=== PATIENT | female | born 1980 | race Caucasian/White ===

== ENCOUNTER 2023-08-19 08:35 | Day surgery (SDC) | payer OTHER ==
[~2023-08-19] VITALS: Ht 167.6 cm; Wt 174.6 kg
[~2023-08-19 08:35] MED LIST: ALBU8.5H INH; ALLO100T PO; CALC600T60 PO; CALCTAB93; CYAN1000VL SQ; D 50CAP2 PO; DRIS50003 PO; ERGO500029 PO; FLUTISP; FOLI1TAB11 PO; LEVO30TA PO; OMEP40CA4 PO; PANT40TA29 PO; PROP40TA62 PO; PROP60CA PO; SUMA25TA3 PO; VENTAER; [UNRECOGNIZED DRUG - CODE] PO; [UNRECOGNIZED DRUG - CODE] PO
[2023-08-19] MEDS ORDERED: fentaNYL 100 MCG/2 ML INJECTION As Ordered ONE (08:48)
[2023-08-19] MEDS ORDERED: LIDOCAINE 2% 100MG/5ML SDV (FOR ANES.) As Ordered ONE (08:49)
[2023-08-19] MEDS ORDERED: propofoL 200 MG/20 ML VIAL As Ordered ONE (08:49)
[2023-08-19] MEDS ORDERED: MIDAZOLAM INJ 2MG/2ML VIAL As Ordered ONE (08:49)
[2023-08-19] MEDS ORDERED: ROCURONIUM BROMIDE 50MG/5ML VIAL As Ordered ONE (08:49)
[2023-08-19] MEDS ORDERED: ONDANSETRON 4MG 2ML VIAL As Ordered ONE (08:49)
[2023-08-19] MEDS ORDERED: SUGAMMADEX SODIUM 500 MG/5 ML VIAL (BRIDION) As Ordered ONE (08:49)
[2023-08-19] MEDS: LR 1,000 ML IV SCH (09:00)
[2023-08-19] MEDS: SCOPOLAMINE 1MG TRANSDERMAL PATCH As Ordered ONE (09:42)
[2023-08-19] MEDS ORDERED: HYDROmorphone HCL 2MG/ML 1ML VIAL As Ordered ONE (10:40)
[2023-08-19] MEDS ORDERED: LR 1,000 ML IV SCH (10:40)
[2023-08-19] MEDS ORDERED: HYDROMORPHONE HCL 0.5 MG/ 0.5 ML SYRINGE IV PRN (10:40)
[2023-08-19] MEDS ORDERED: fentaNYL 100 MCG/2 ML INJECTION IV PRN (10:40)
[2023-08-19] MEDS: METOCLOPRAMIDE INJ 10MG/2ML VIAL IV PRN (11:03)
[2023-08-19] MEDS: ONDANSETRON 4MG 2ML VIAL IV PRN (11:03)
[2023-08-19] MEDS: oxyCODONE 5MG TAB PO PRN (11:24)
[2023-08-19 12:00] VITALS: BP 134/67; TEMP 97.5; O2SAT 96
== END 2023-08-19 12:19 | disposition home or self-care (01) ==
LOC: M SDC 08:35
PROVIDERS: ATTEND Otolaryngology
DX: J35.01 Chronic tonsillitis (principal); M10.9 Gout, unspecified; Z88.5 Allergy status to narcotic agent; Z88.0 Allergy status to penicillin; Z79.899 Other long term (current) drug therapy
CPT/HCPCS: 42826; 88302; J1100; J1170; J2250; J2405; J2765; J3010

== ENCOUNTER 2023-09-15 15:06 | Outpatient (CLI) | payer OTHER ==
[~2023-09-15] VITALS: Ht 167.6 cm; Wt 154.0 kg
[2023-09-15 15:15] VITALS: BP 166/88; O2SAT 100
[2023-09-15] MEDS: diphenhydrAMINE 25MG CAP PO ONE (15:20)
[2023-09-15] MEDS: ACETAMINOPHEN TAB 650MG DOSE (2X325MG) PO ONE (15:20)
[2023-09-15] MEDS: IRON SUCROSE 100 MG in NS 95 ML IV ONE (15:52)
[2023-09-15 16:50] VITALS: BP 142/64; O2SAT 99
== END 2023-09-15 16:50 ==
LOC: M INFU 15:06
PROVIDERS: ATTEND Internal Medicine Medical Oncology
DX: D50.9 Iron deficiency anemia, unspecified (principal); Z88.0 Allergy status to penicillin; Z88.5 Allergy status to narcotic agent
CPT/HCPCS: 96365; J1756

== ENCOUNTER 2023-09-22 15:15 | Outpatient (CLI) | payer OTHER ==
[~2023-09-22] VITALS: Ht 167.6 cm; Wt 154.5 kg
[~2023-09-22 15:15] MED LIST changes: +ACETAMINOPHEN TAB 650MG DOSE (2X325MG) PO ONE; +diphenhydrAMINE 25MG CAP PO ONE
[2023-09-22 15:20] VITALS: BP 149/69; O2SAT 97
[2023-09-22] MEDS: IRON SUCROSE 100 MG in NS 95 ML IV ONE (15:34)
[2023-09-22 16:40] VITALS: BP 126/62; O2SAT 97
== END 2023-09-22 16:40 | disposition home or self-care (01) ==
LOC: M INFU 15:15
PROVIDERS: ATTEND Internal Medicine Medical Oncology
DX: D50.9 Iron deficiency anemia, unspecified (principal); Z88.0 Allergy status to penicillin; Z88.5 Allergy status to narcotic agent
CPT/HCPCS: 96365; J1756

== ENCOUNTER 2023-10-01 14:49 | Outpatient (CLI) | payer OTHER ==
[~2023-10-01] VITALS: Ht 167.6 cm; Wt 174.2 kg
[~2023-10-01 14:49] MED LIST changes: -ACETAMINOPHEN TAB 650MG DOSE (2X325MG) PO ONE; -diphenhydrAMINE 25MG CAP PO ONE
[2023-10-01] MEDS ORDERED: ACETAMINOPHEN 650MG PO PRIOR TO INFUSION PO ONE (15:00)
[2023-10-01] MEDS ORDERED: diphenhydrAMINE 25MG PO PRIOR TO INFUSION PO ONE (15:00)
[2023-10-01] MEDS: IRON SUCROSE 100 MG in NS 95 ML IV ONE (15:30)
[2023-10-01 16:33] VITALS: BP 127/65; O2SAT 96
== END 2023-10-01 16:35 | disposition home or self-care (01) ==
LOC: M INFU 14:49
PROVIDERS: ATTEND Internal Medicine Medical Oncology
DX: D50.9 Iron deficiency anemia, unspecified (principal); Z88.0 Allergy status to penicillin; Z88.5 Allergy status to narcotic agent
CPT/HCPCS: 96365; J1756